=== PATIENT | female | born 1955 | race Caucasian/White ===

== ENCOUNTER → 2017-03-29 | Outpatient (CLI) | payer OTHER | END | disposition home or self-care (01) | LOC: GMAB 14:25 | PROVIDERS: ATTEND Family Medicine | DX: N39.0 Urinary tract infection, site not specified (principal) ==

== ENCOUNTER 2019-09-29 10:14 | Emergency (ER) | payer BC ==
--- NOTE | 2019-09-29 10:17 | ED.PDOC ---
History of Present Illness - General Time Seen by Provider: 09/29/19 10:16 Source: patient - History of Present Illness Initial Comments: 63 yo female who presents with cc of R shoulder pain following ground-level fall at home just [employer]. Patient states that she tripped and fell forward striking the right shoulder against her countertop at home. Reports constant sharp 6/10 pain primarily to the right posterior shoulder region but radiates into the shoulder and also has some radiating pain towards her neck. Also reports tingling sensation down the right arm and into the right hand. Pain markedly worsens with any movement of the shoulder, no medications taken for relief. Denies any weakness or numbness. Does report some deformity of the right shoulder region. Denies any prior injuries, fractures, dislocations of the shoulder. PCP is Dr. West. Allergies/Adverse Reactions: Allergies NO KNOWN ALLERGY Allergy (Verified 09/29/19 10:32) Home Medications: Ambulatory Orders PARoxetine HCL [Paxil] 20 mg PO DAILY 09/29/19 Pravastatin Sodium 40 mg PO DAILY 09/29/19 Review of Systems - Review of Systems Review of Systems: 09/29/19 10:26 as per HPI All other Systems: Reviewed and Negative Family Medical History - Family History Mother Family History: No Known Physical Exam - Physical Exam General Appearance: Alert, No apparent distress Eyes, Ears, Nose, Throat Exam: PERRL/EOMI, normal ENT inspection Neck: non-tender, full range of motion, supple, normal inspection Cardiovascular/Respiratory: regular rate, rhythm, no M/R/G, normal peripheral pulses, no JVD, normal breath sounds, no respiratory distress Abdominal Exam: non-tender Back Exam: normal inspection Shoulder Exam: deformity - Right shoulder with anterior deformity apparent. Patient holding right upper extremity fully abducted and internally rotated due to pain. There is moderate tenderness to palpation to the posterior aspect of the shoulder. Radial and ulnar pulses are 2+ and equal bilaterally, strength and sensation appear intact throughout., limited ROM - markedly limited due to pain, pain Elbow/Forearm Exam: normal inspection, non-tender, no evidence of injury Wrist Exam: normal inspection Hand Exam: normal inspection Neuro/Tendon: normal sensation, normal motor functions Mental Status: alert, oriented x 3 Skin Exam: normal color, warm/dry Progress - Progress Progress: 09/29/19 10:29 Acute right shoulder pain -Concern for shoulder dislocation, shoulder fracture. Consider also radiculopathy, rotator cuff injury, other -Obtain x-ray of the right shoulder, basic labs -Place PIV, Dilaudid 1 mg IV for pain, Zofran 4 mg IV to prevent nausea 09/29/19 11:02 -X-ray of the right shoulder reveals anterior inferior glenohumeral dislocation without evidence of fracture per my read. Radiology read reviewed and confirms the same. -Labs largely unremarkable -Patient still reporting moderate pain. Will give fentanyl 50 mcg IV and prepare for reduction of the right shoulder under procedural sedation with etomidate. Procedural sedation consent forms signed, procedure discussed in full with patient and at bedside, discussed all risks including risk of cardio respiratory depression, risk of possible need for assisted respirations/intubation/ventilation, risk of failure of reduction, risk of need for further procedures, etc. Patient reports she has not had anything to eat today and denies any prior history of adverse reactions to anesthesia. 09/29/19 12:17 -The the patient's shoulder was easily reduced in the ED (see procedure note for further details). She was placed in a sling and instructed to wear for the next 2 to 3 days and then to discontinue and begin gentle passive range of motion exercises and follow-up closely with orthopedic surgery and her primary care physician. -We will DC to home in good condition, ED return precautions discussed at length Reji Stephen MD Billing #[id number] 09/29/19 10:22 Sodium Chloride 0.9% (Flush) [Saline Flush Syringe] 10 ml IV PRN PRN 09/29/19 10:23 Sodium Chloride 0.9% 500Ml [NS 500ml] 500 ml IVS .KVO 09/29/19 11:06 Sling ONCE 09/29/19 11:40 Shoulder,Right 1 View [RAD] Stat 09/30/19 09:00 Pulse Ox Daily Laboratory Results - last 24 hr 09/29/19 09/29/19 10:27 10:27 WBC 9.4 RBC 4.52 Hgb 14.1 Hct 41.7 MCV 92.1 MCH 31.1 H MCHC 33.8 RDW 13.8 Plt Count 286 MPV 8.5 Absolute Neuts (auto) 4.10 Absolute Lymphs (auto) 4.40 H Absolute Monos (auto) 0.70 Absolute Eos (auto) 0.10 Absolute Basos (auto) 0.10 Neutrophils % 43.7 Lymphocytes % 46.7 Monocytes % 7.4 Eosinophils % 1.6 Basophils % 0.6 Sodium 139 Potassium 3.8 Chloride 107 Carbon Dioxide 22 Anion Gap 13.8 BUN 15 Creatinine 1.06 BUN/Creatinine Ratio 14.2 Random Glucose 155 H Serum Osmolality 281.5 Calcium 9.4 Procedures - Joint Reduction right shoulder Conscious Sedation: Yes - Etomidate 15 mg IV Reduction Attempts: 1 Pre-Procedure NV Exam: Yes - intact Post Joint Reduction Film: joint reduced Progress: Prior to the procedure, consent forms were signed and the procedure was discussed in full including indications and risks. Timeout was performed just prior to her procedure verifying the correct patient and site of procedure. The patient was given a total of Dilaudid 1 mg IV and fentanyl 100 mcg IV prior to the procedure for pain control. For procedural sedation the patient was given etomidate 15 mg IV in the presence of physician, registered nurse, and respiratory therapy with continuous cardiopulmonary monitoring and supplemental oxygen. The right shoulder was easily reduced on the first attempt using gentle traction, external rotation, and abduction technique. Postprocedural e xamination revealed resolution of shoulder deformity and patient remained neurovascularly intact throughout the right upper extremity. Following reduction the shoulder was immediately placed into a sling and postreduction films confirmed good reduction of the shoulder. The patient tolerated the procedure well and there were no complications. Departure - Departure Clinical Impression: Dislocation, shoulder, anterior Qualifiers: Encounter type: initial encounter Laterality: right Qualified Code(s): S43.014A - Anterior dislocation of right humerus, initial encounter Time of Disposition: 12:10 Disposition: Discharge to Home or Self Care Condition: Good Instructions: Shoulder Dislocation (DC) Diet: resume usual diet Activity: increase activity as tolerated Referrals: RIGO WEST MD [Primary Care Provider] - 1-2 Weeks Khalif Ferraro MD [Active Staff] - 1 Week Home Medications: Ambulatory Orders PARoxetine HCL [Paxil] 20 mg PO DAILY 09/29/19 Pravastatin Sodium 40 mg PO DAILY 09/29/19 Additional Instructions: Wear the sling to the right upper extremity as directed for the next 2 to 3 days. Then you may remove and begin gentle range of motion exercises of the right upper extremity as discussed to help prevent frozen shoulder. You will need to follow-up with the orthopedic surgery clinic and with your primary care physician in the next 7 to 10 days for further outpatient evaluation of right shoulder dislocation which has been reduced in the emergency room. You may continue to take [id number] medications for pain such as Tylenol 650 mg every 6 hours as needed and ibuprofen 600 mg every 6 hours as needed. Return to the ED if the shoulder again becomes dislocated or if you develop any other concerning symptoms such as weakness or numbness of the right upper extremity, color change of the right upper extremity, etc.
[2019-09-29] MEDS ORDERED: SODIUM CHLORIDE 0.9% (FLUSH) 10 ML SYG IV PRN (10:22)
[2019-09-29] MEDS ORDERED: ONDANSETRON INJ 4 MG/2 ML VIAL IV ONE (10:23)
[2019-09-29] MEDS ORDERED: HYDROmorphone HCL INJ 2 MG/ML VIAL IV ONE (10:23)
[2019-09-29] MEDS ORDERED: SODIUM CHLORIDE 0.9% 500ML 500 ML IVS PRN (10:23)
--- NOTE | 2019-09-29 10:46 | RAD ---
EXAM DESCRIPTION: Shoulder x-ray,Right 2 Views CLINICAL HISTORY: fall, Right shoulder pain and deformity COMPARISON: None Available. TECHNIQUE: Two x-ray views of the right shoulder. FINDINGS: Anterior inferior dislocation of the right humeral head relative to the glenoid. No fracture. AC joint appears intact. Lungs are clear. Heart is prominent. Large hiatal hernia. IMPRESSION: Anteroinferior glenohumeral dislocation. Electronically signed by: Jonathan Sales MD 09/29/2019 10:44 AM CDT
[2019-09-29] MEDS ORDERED: ETOMIDATE INJECTION 2 MG/ML 20ML VIAL IV ONE ×2 (11:00→11:01)
[2019-09-29] MEDS ORDERED: fentaNYL CITRATE INJ 50 MCG/ML 2 ML AMP IV ONE (11:01)
--- NOTE | 2019-09-29 12:20 | RAD ---
EXAM DESCRIPTION: Shoulder,Right 1 View CLINICAL HISTORY: 63 years Female, s/p reduction COMPARISON: Earlier today Findings: One view(s)/radiograph(s) Interval reduction of the right shoulder dislocation. No acute fracture or dislocation. No focal soft tissue swelling. Chest is clear. Mild acromial clavicular osteoarthritis. IMPRESSION: Interval reduction of the right shoulder dislocation. Electronically signed by: Tenzin Benavides MD 09/29/2019 12:19 PM CDT
[2019-09-29 13:36] VITALS: BP 120/74; TEMP 98.4; O2SAT 98
== END 2019-09-29 13:05 | disposition home or self-care (01) ==
LOC: ER 10:14
DX: S43.014A Anterior dislocation of right humerus, initial encounter (principal); W19.XXXA Unspecified fall, initial encounter; Y92.009 Unspecified place in unspecified non-institutional (private) residence as the place of occurrence of the external cause
CPT/HCPCS: 36415; 73020; 73030; 80048; 85025; 94770; J1170; J2405; J3010; J7040

== ENCOUNTER → 2019-10-30 | Outpatient (CLI) | payer BC ==
--- NOTE | 2019-10-30 12:05 | RAD ---
EXAM DESCRIPTION: Shoulder,Right 2 or More Views CLINICAL HISTORY: 63 years Female, SHOULDER PN COMPARISON: Right shoulder radiographs 09/29/2019 TECHNIQUE: 4 view radiographs of the right shoulder. IMPRESSION: No acute displaced fracture. No dislocation. Mild arthrosis of the acromioclavicular joint with no greater than 1-2 mm undersurface spurring. No significant arthrosis of the glenohumeral joint. No soft tissue defect or radiopaque foreign body. Electronically signed by: Lex Johnston MD 10/30/2019 12:03 PM CDT
== END ==
LOC: RAD 10:45
PROVIDERS: ATTEND Orthopaedic Surgery
DX: M19.011 Primary osteoarthritis, right shoulder (principal)

== ENCOUNTER → 2019-11-17 | Outpatient (CLI) | payer MEDICARE, OTHER ==
--- NOTE | 2019-11-17 13:47 | MRI ---
EXAM DESCRIPTION: MRI right shoulder CLINICAL HISTORY: Shoulder dislocation 6 weeks ago. Shoulder pain. Instability COMPARISON: None. TECHNIQUE: Multiplanar, multisequence MR images of the right shoulder FINDINGS: Shallow Hill-Sachs impaction fracture with mild edema. Capsular stripping from the anterior inferior glenoid rim and neck. Blunted anterior inferior labrum without detachment or displacement. Humeral avulsion of the glenohumeral ligament. Laxity of the axillary recess capsule/inferior glenohumeral ligament with extensive surrounding edema. Full-thickness insertional supraspinatus tendon tear uncovering the majority of the horizontal facet greater tuberosity spanning 1.2 cm anteroposterior. Retraction about 4 mm. Muscle volume is mildly decreased with grade 2 fatty infiltration Infraspinatus tendinosis with bursal surface partial tear of the anterior tendon. Muscle volume is mildly decreased with grade 2 fatty infiltration. Teres minor tendon and muscle are normal. Low-grade articular surface fraying of the subscapularis tendon with diffuse tendinosis. Mild muscle volume loss and grade 1 fatty infiltration Long head biceps tendon normal in the bicipital groove and intra-articular. Labral anchor intact. No full-thickness glenohumeral chondrosis or chronic osteochondral lesion. Moderate glenohumeral joint effusion. Large subacromial subdeltoid bursal fluid collection and synovitis. Mild acromioclavicular osteoarthritis. Lateral downsloping of the acromion with prominent inferior acromial spur IMPRESSION: Sequela of previous shoulder dislocation with a shallow Hill-Sachs impaction fracture. Anterior capsular stripping from the glenoid. Blunted anterior inferior labrum without labral detachment or displacement Humeral avulsion glenohumeral ligament. Supraspinatus tendon tear mid to posterior tendon with interstitial and bursal detachment from the insertion, possibly thin articular fibers intact Electronically signed by: Lenin Smallwood MD 11/17/2019 1:46 PM CDT
== END ==
LOC: MRI 07:58
PROVIDERS: ATTEND Orthopaedic Surgery
DX: S43.004S Unspecified dislocation of right shoulder joint, sequela (principal); S42.301A Unspecified fracture of shaft of humerus, right arm, initial encounter for closed fracture; M75.101 Unspecified rotator cuff tear or rupture of right shoulder, not specified as traumatic; S43.491A Other sprain of right shoulder joint, initial encounter

== ENCOUNTER → 2020-05-16 | Outpatient (CLI) | payer MEDICARE, OTHER | LOC: GMAE 10:52 | PROVIDERS: ATTEND Family Medicine | DX: Z79.899 Other long term (current) drug therapy (principal); E78.2 Mixed hyperlipidemia ==